=== PATIENT | female | born 1990 | race Caucasian/White ===

== ENCOUNTER 2017-03-16 12:58 | Emergency (ER) | payer SELFPAY ==
[~2017-03-16 12:58] MED LIST: FERR324T8 PO; PREN0.01 PO
[2017-03-16 13:01] VITALS: BP 160/96; PULSE 103; RESP 22; TEMP 98.2; O2SAT 100
[2017-03-16 14:09] LABS: AUTOMATED NEUTROPHIL # 5.4 TH/MM3 (1.8-7.7); BASOPHIL % 0.4 % (0.0-2.0); EOSINOPHIL # 0.1 TH/MM3 (0-0.4); EOSINOPHIL % 0.7 % (0.0-4.0); HEMATOCRIT 38.1 % (35.0-46.0); LYMPHOCYTE # 1.9 TH/MM3 (1.0-4.8); MEAN CELL VOLUME 90.5 FL (80.0-100.0); MEAN CORPUSCULAR HEMOGLOBIN 30.9 PG (27.0-34.0); MEAN CORPUSCULAR HGB CONC 34.1 % (32.0-36.0); MEAN PLATELET VOLUME 7.9 FL (7.0-11.0); MONO % 5.9 % (0.0-8.0); MONOCYTE # 0.5 TH/MM3 (0-0.9); PLATELET COUNT 236 TH/MM3 (150-450); RED BLOOD COUNT 4.21 MIL/MM3 (4.00-5.30); WHITE BLOOD COUNT 7.9 TH/MM3 (4.0-11.0)
--- NOTE | 2017-03-16 14:11 | RADRPT ---
EXAM DATE/TIME: 03/16/2017 13:27 [place] COMPARISON: No previous studies available for comparison. INDICATIONS : Chest pain started 10 minutes ago. MEDICAL HISTORY : None. SURGICAL HISTORY : None. ENCOUNTER: Initial ACUITY: 1 day PAIN SCORE: 9/10 LOCATION: mid chest FINDINGS: PA and lateral views of the chest demonstrate the lungs to be symmetrically aerated without evidence of mass, infiltrate or effusion. The cardiomediastinal contours are unremarkable. Osseous structure s are intact. CONCLUSION: 1. No acute cardiopulmonary findings. Roberto Carlos Pike MD on March 16, 2017 at 14:07 Board Certified Radiologist. This report was verified electronically.
[2017-03-16 14:15] LABS: BACTERIA, URINE RARE /hpf; BILIRUBIN, URINE NEG (NEG); BLOOD, URINE NEG (NEG); GLUCOSE,URINE NEG (NEG); KETONE, URINE NEG (NEG); NITRITE,URINE NEG (NEG); PH, URINE 6.5 (5.0-8.5); SQUAMOUS EPITHELIAL CELL URINE 2 /hpf (0-5); URINE COLOR YELLOW (YELLW/STRAW); URINE LEUKOCYTE ESTERASE SMALL (NEG)
[2017-03-16 14:21] LABS: PROTHROMBIN TIME - PATIENT 10.1 SEC (9.8-11.6)
[2017-03-16 14:23] LABS: D-DIMER 0.28 MG/L FEU (0.00-0.50)
[2017-03-16 14:24] LABS: ALBUMIN 3.7 GM/DL (3.4-5.0); ALT (GPT) 33 U/L (10-53); AST (GOT) 14 U/L (15-37); BICARBONATE 23.6 MEQ/L (21.0-32.0); BLOOD UREA NITROGEN 9 MG/DL (7-18); CALCIUM 8.8 MG/DL (8.5-10.1); CHLORIDE 107 MEQ/L (98-107); CREATININE 0.67 MG/DL (0.50-1.00); GLOMERULAR FILTRATION RATE 107 ML/MIN (>89); GLUCOSE,RANDOM 134 MG/DL (74-106); LIPASE 243 U/L (73-393); SODIUM (NA) 138 MEQ/L (136-145)
[2017-03-16 14:28] LABS: ALKALINE PHOSPHATASE 64 U/L (45-117); TOTAL BILIRUBIN ADULT 0.3 MG/DL (0.2-1.0); TOTAL PROTEIN 7.5 GM/DL (6.4-8.2); TROPONIN I LESS THAN 0.02 NG/ML (0.02-0.05)
--- NOTE | 2017-03-16 15:36 | PD ---
HPI . Chest pain and shortness of breath Chief Complaint: Chest Pain Time Seen by Provider: 15:23 Travel History International Travel<30 days: No Contact w/Intl Traveler<30days: No Traveled to known affect area: No History of Present Illness HPI Patient presents with chest pain shortness of breath which started while she was sitting in her car at 1250 today. Symptoms wax and wane. Her severity can go from a 4 to a 9. No known modifying factors. She does report a previous similar history and states that she was told that she had chest wall pain. That was about a year ago. PFSH Past Medical History ?: Not LMP: Months ago. On Nexplanon : 2 Para: 1 Miscarriage: 0 : 0 Social History Alcohol Use: No Tobacco Use: No Substance Use: No Allergies-Medications (Allergen,Severity, Reaction): Coded Allergies: No Known Allergies (Unverified , 09/23/13) Reported Meds & Prescriptions Reported Meds & Active Scripts Active Reported Ferrous Fumarate 324 (Ferrous Fumarate) 324 Mg Tab 325 Mg PO DAILY Vit ( Plus) (Prenat Multivit/[place]/Iron/Folic Ac) Tab 1 Tab PO DAILY Review of Systems Except as stated in HPI: all other systems reviewed are Neg General / Constitutional: No: Fever, Chills Cardiovascular: Positive: Chest Pain or Discomfort Respiratory: Positive: Shortness of Breath Physical Exam Narrative GENERAL: Awake and alert and in no acute distress. SKIN: Warm and dry. HEAD: Normocephalic/atraumatic. EYES: Pupils are equal. Extraocular movements are intact. NECK: Normal range of motion. CARDIOVASCULAR: Regular rate and rhythm. Heart sounds are normal. RESPIRATORY: Nonlabored respirations. Lungs are clear with full air movement throughout. Chest wall is tender to palpation. ABDOMEN: Abdomen is soft and nontender. MUSCULOSKELETAL: Atraumatic. NEUROLOGICAL: Nonfocal. PSYCHIATRIC: Appropriate mood and affect. Data Data Last Documented VS Vital Signs Date Time Temp Pulse Resp B/P (MAP) Pulse Ox O2 Delivery O2 Flow Rate FiO2 03/16/17 13:01 98.2 103 22 160/96 (117) 100 Orders Orders Electrocardiogram (03/16/17 13:06) Ckmb (Isoenzyme) Profile (03/16/17 13:06) Complete Blood Count With Diff (03/16/17 13:06) Comprehensive Metabolic Panel (03/16/17 13:06) D-Dimer (03/16/17 13:06) Magnesium (Mg) (03/16/17 13:06) Prothrombin Time / Inr (Pt) (03/16/17 13:06) Act Partial Throm Time (Ptt) (03/16/17 13:06) Troponin I (03/16/17 13:06) Lipase (03/16/17 13:06) Chest, Pa & Lat (03/16/17 13:06) Urinalysis - C+S If Indicated (03/16/17 13:06) Ed Urine Pregnancytest Poc (03/16/17 13:06) CKMB (03/16/17 13:44) CKMB% (03/16/17 13:44) Ed Discharge Order (03/16/17 15:32) Labs Laboratory Tests Test 03/16/17 13:40 03/16/17 13:44 Urine Color YELLOW Urine Turbidity CLEAR Urine pH 6.5 Urine Specific [place] 1.015 Urine Protein NEG mg/dL Urine Glucose (UA) NEG mg/dL Urine Ketones NEG mg/dL Urine Occult Blood NEG Urine Nitrite NEG Urine Bilirubin NEG Urine Urobilinogen LESS THAN 2.0 MG/DL Urine Leukocyte Esterase SMALL Urine RBC 1 /hpf Urine WBC 1 /hpf Urine Squamous Epithelial Cells 2 /hpf Urine Bacteria RARE /hpf Microscopic Urinalysis Comment CULT NOT INDICATED White Blood Count 7.9 TH/MM3 Red Blood Count 4.21 MIL/MM3 Hemoglobin 13.0 GM/DL Hematocrit 38.1 % Mean Corpuscular Volume 90.5 FL Mean Corpuscular Hemoglobin 30.9 PG Mean Corpuscular Hemoglobin Concent 34.1 % Red Cell Distribution Width 13.0 % Platelet Count 236 TH/MM3 Mean Platelet Volume 7.9 FL Neutrophils (%) (Auto) 69.0 % Lymphocytes (%) (Auto) 24.0 % Monocytes (%) (Auto) 5.9 % Eosinophils (%) (Auto) 0.7 % Basophils (%) (Auto) 0.4 % Neutrophils # (Auto) 5.4 TH/MM3 Lymphocytes # (Auto) 1.9 TH/MM3 Monocytes # (Auto) 0.5 TH/MM3 Eosinophils # (Auto) 0.1 TH/MM3 Basophils # (Auto) 0.0 TH/MM3 CBC Comment DIFF FINAL Differential Comment Prothrombin Time 10.1 SEC Prothromb Time International Ratio 1.0 RATIO Activated Partial Thromboplast Time 26.6 SEC D-Dimer Quantitative (PE/DVT) 0.28 MG/L FEU Blood Urea Nitrogen 9 MG/DL Creatinine 0.67 MG/DL Random Glucose 134 MG/DL Total Protein 7.5 GM/DL Albumin 3.7 GM/DL Calcium Level 8.8 MG/DL Magnesium Level 2.0 MG/DL Alkaline Phosphatase 64 U/L Aspartate Amino Transf (AST/SGOT) 14 U/L Alanine Aminotransferase (ALT/SGPT) 33 U/L Total Bilirubin 0.3 MG/DL Sodium Level 138 MEQ/L Potassium Level 3.4 MEQ/L Chloride Level 107 MEQ/L Carbon Dioxide Level 23.6 MEQ/L Anion Gap 7 MEQ/L Estimat Glomerular Filtration Rate 107 ML/MIN Total Creatine Kinase 110 U/L Creatine Kinase MB 0.7 NG/ML Troponin I LESS THAN 0.02 NG/ML Lipase 243 U/L MDM Medical Decision Making Medical Screen Exam Complete: Yes Emergency Medical Condition: Yes Interpretation(s) EKG shows a normal sinus rhythm with no acute ischemic change. Differential Diagnosis Differential diagnosis of chest pain includes but is not limited to musculoskeletal pain, pulmonary embolism, acute coronary syndrome, pneumonia, pleurisy Narrative Course This patient presents with chest pain. She looks well. She has chest wall tenderness. CBC & BMP Diagram 03/16/17 13:44 Total Protein 7.5, Albumin 3.7, Calcium Level 8.8, Magnesium Level 2.0, Alkaline Phosphatase 64, Aspartate Amino Transf (AST/SGOT) 14 L, Alanine Aminotransferase (ALT/SGPT) 33, Total Bilirubin 0.3 Troponin < 0.02 Last Impressions Chest X-Ray 03/16/17 1306 Signed Impressions: Service Date/Time: Thursday, March 16, 2017 13:27 - CONCLUSION: 1. No acute cardiopulmonary findings. Roberto Carlos Pike MD The chest x-ray was independently viewed by me. The history, exam, diagnostic testing, and current condition do not suggest any significant pathology to warrant further testing, continued ED treatment, admission, or surgical evaluation at this point. No EMC was found. The patient 's condition is stable and appropriate for discharge. Diagnosis Primary Impression: Chest wall pain Patient Instructions: General Instructions, Chest Wall Pain (ED) Departure Forms: Tests/Procedures Additional Instructions: over the counter ibuprofen, naproxen, etc as needed for chest pain Disposition: 01 DISCHARGE HOME Condition: Stable Rimma Brito MD Mar 16, 2017 15:36
--- NOTE | 2017-03-17 17:45 | EKG ---
Date Performed: 03/16/2017 Time Performed: 13:48:50 PTAGE: 26 years EKG: Sinus rhythm NORMAL ECG NO PREVIOUS TRACING DOCTOR: Carlos Harris Interpretating Date/Time 03/17/2017 17:38:02
== END 2017-03-16 16:00 | disposition home or self-care (01) ==
LOC: NEPD 12:58
DX: R07.89 Other chest pain (principal); R06.02 Shortness of breath; Z79.899 Other long term (current) drug therapy
CPT/HCPCS: 71046; 80053; 81001; 82550; 82552; 83690; 83735; 84484; 84703; 85025; 85379; 85610; 85730; 93005; 99285